=== PATIENT | female | born 1955 | race Caucasian/White ===

== ENCOUNTER 2022-03-12 08:58 | Inpatient (IN) | payer MEDICARE, OTHER ==
[~2022-03-12] VITALS: Ht 172.7 cm; Wt 91.5 kg
[2022-03-12] MEDS ORDERED: GLIMEPIRIDE4 MG PO (10:30)
[2022-03-12] MEDS ORDERED: LISINOPRIL20 MG PO (10:30)
[2022-03-12] MEDS ORDERED: FLUOXETINE HCL20 MG PO (10:30)
[2022-03-12] MEDS ORDERED: TRAZODONE HCL50 MG PO (10:31)
[2022-03-12] MEDS ORDERED: METFORMIN HCL500 MG PO (10:31)
[2022-03-12] MEDS ORDERED: FREESTYLE LIBR1 EAC2 (10:32)
--- NOTE | 2022-03-12 13:00 | NUR ---
Report received from ED RN. Pt arrived to floor from ED- settled into room. Pt is alert and oriented; speech is slurred. Compliant with assessment. Call light at hand. Denies pain/discomfort. VSS. No sign of distress noted. Will cont to monitor.
[2022-03-12] MEDS ORDERED: CLOPIDOGREL75 MG PO (13:06)
[2022-03-12] MEDS ORDERED: NOVOLIN 70100 UNIT/1 SUB-Q (13:07)
--- NOTE | 2022-03-12 15:00 | NUR ---
Alert and oriented x4. Denies pain/discomfort. Pleasant mood. Verbalizes needs; speech slurred. Up to BR with 2 person assist. VSS- see order for permissive HTN. Afebrile. Bedside swallow eval done with RN- see diet order. IV patent- flushed. Incontinent and continent of bladder. Call light within reach. Will cont to monitor.
--- NOTE | 2022-03-12 16:15 | NUR ---
MED REC COMPLETE
--- NOTE | 2022-03-12 17:00 | NUR ---
Up to chair for dinner with assist. Pt's friend is in visiting- pt seems to be in good spirits. Denies pain/discomfort. Pleasant mood. VSS. Pt w/ shampoo cap to hair then combed. BG WNL- no s/s insulin administered. Takes po meds without difficulty. Call light within reach. Will cont to monitor.
--- NOTE | 2022-03-12 19:59 | NUR ---
REPORT RECEIVED FROM DAY SHIFT RN. PT LYING IN BED ALERT AND ORIENTED. DENIES PAIN. WARM BLANKET PROVIDED. NO FURTHER NEEDS AT THIS TIME. WHITE BOARD UPDATED. CALL LIGHT IN REACH.
--- NOTE | 2022-03-12 21:30 | NUR ---
EVENING ASSESSMENT COMPLETE. SCHEDULED MEDS ADMIN PER EMAR. PT DENIES PAIN OR NAUSEA. NEURO CHECK COMPLETE. LEFT SIDE WEAKNESS NOTED WITH LITTLE MOVEMENT IN LEFT ARM. LEFT SIDE FACIAL DROOP AND SLURRED SPEECH NOTED. NO SWALLOWING ISSUES NOTED. 2PA TO REPOSITION IN BED. PT DENIES QUESTIONS OR CONCERNS. CALL LIGHT IN REACH.
--- NOTE | 2022-03-12 23:17 | NUR ---
PT RESTING IN BED WITH EYES CLOSED. RESPIRATIONS EVEN. TELE #5 SR. HR 80'S. CALL LIGHT IN REACH.
--- NOTE | 2022-03-13 02:25 | NUR ---
PT RESTING WITH EYES CLOSED. AWAKENS EASILY. VS AND I&O COMPLETE. NEURO ASSESSMENT COMPLETE. PT WITH LEFT FACIAL DROOP AND SLURRED SPEECH. DENIES VISUAL DISTURBANCES OR HEADACHE. PT WITH CARD GAME OPERATOR STRENGTH IN LEFT HAND BUT UNABLE TO RAISE LEFT ARM OFF OF THE BED. IMPROVED STRENGTH IN LEFT LEG NOTED. 2PA TO BSC TO VOID 250 ML CONCENTRATED URINE. STAFF ASSIST WITH NADIA CARE. CLEAN BRIEF ON. BACK TO BED, MARILYN WELL. TELE #5. SR. HR 70'S. NO FURTHER NEEDS. CALL LIGHT IN REACH.
--- NOTE | 2022-03-13 04:12 | NUR ---
PT RESTING IN BED WITH EYES CLOSED. RESPIRATIONS EVEN. CALL LIGHT IN REACH.
--- NOTE | 2022-03-13 05:51 | NUR ---
PT AWAKE IN BED. NEURO CHECK COMPLETE. VS AND I&O OBTAINED. PT DENIES PAIN OR NAUSEA. DUE TO VOID. ENCOURAGED PO INTAKE. TEA PROVIDED PER REQUEST. 2PA TO REPOSITION IN BED. NO FURTHER NEEDS.
--- NOTE | 2022-03-13 06:51 | NUR ---
PT UP TO BSC WITH 2PA TO ATTEMPT TO VOID WITH NO RESULTS. NADIA CARE DONE AND CLEAN BRIEF PLACED. BACK TO BED, MARILYN WELL. CONTINUE TO ENCOURAGE PO INTAKE. BED ALARM FOR SAFETY. CALL LIGHT IN REACH.
--- NOTE | 2022-03-13 06:57 | NUR ---
DR. SANCHEZ NOTIFIED OF LOW URINE OUTPUT AND POOR PO INTAKE. TO PUT ORDERS IN FOR IVF.
--- NOTE | 2022-03-13 08:59 | EKG ---
[facility] [address] [facility] [place], [place] [address] Signed Normal sinus rhythm Normal ECG No previous ECGs available Confirmed by ASHWIN SANCHEZ MD ([id number]) on 03/13/2022 8:58:51 AM Electronically Signed By: ASHWIN SANCHEZ MD 03/13/22 0859 PATIENT NAME: BRITTNEY ISAACS Electrocardiogram DATE OF : 55 PHYSICIAN: ASHWIN SANCHEZ MD REPORT #: [id number] REPORT IS CONFIDENTIAL AND NOT TO BE RELEASED WITHOUT AUTHORIZATION
--- NOTE | 2022-03-13 09:08 | NUR ---
RECD REPORT FROM NIGHT RN AT 0730, ASSUMED ALL CARE OF PT., RESTING OOB IN CHAIR, SHE HAS WORKED WITH PT ALREADY THIS MORNING, GAIT BELT, FWW, NEEDS ASSIST IN ROOM, L WEAKNESS/TARAS, ALSO FOLLOWED BY OT, . MODIFIED DIET WITH THIN LIQUID, PT. IS SLIGHTLY IMPULSIVE AND NEEDS FREQUENT CUES TO SLOW DOWN WHEN EATING AND DRINKING, SHE HAS A ZIO PATCH ON THAT WILL COME OFF ON MONDAY. TELE MONITOR HERE, SR=85. DENIES ANY DISCOMFORTS, SL IV.
--- NOTE | 2022-03-13 11:22 | NUR ---
EKG COMPLETED AND LR BOLUS COMPLETING. PT OOB IN CHAIR, CHAIR ALARM IN PLACE, REMINDED TO SIP LIQUIDS AND NOT SWALLOW GULPS. IS INSTRUCTED.
--- NOTE | 2022-03-13 12:42 | NUR ---
RN AND ADVANCE SEAL DELIVERY SYSTEM MAINTAINER ASSISTED PT. FROM CHAIR TO BSC FOR BM AND URINE, STOOD INDEPENDENTLY WITH STRENGTH, PIVOT WITH MIN ASSIST GAIT BELT/FWW TO BSC, THEN ABLE TO BACK SLOWLY TO BED. STATES SHE HAS HAD A COUGH FOR A COUPLE OF WEEKS.
--- NOTE | 2022-03-13 14:23 | NUR ---
PUMP ALARMING, INFUSION COMPLETE. NEW IV FLUID BAG HUNG. IV ASSESSED, WNL. NO S/S OF PHLEBITIS NOTED. PT WORKING WITH STUDENT AMBASSADOR. NO ADDITONAL NEEDS AT THIS TIME. CALL LIGHT WITHIN REACH. BED RAILS UP.
--- NOTE | 2022-03-13 18:07 | NUR ---
PT CALL LIGHT ON. PT REQUESTS ASSISTANCE TO USE THE RESTROOM. 2 PERSON ASSIST WITH GAIT BELT UP TO BEDSIDE COMODE. PT DEPENDS SATURATED. PT VOIDS ADDITONAL 500ML CLEAR YELLOW URINE. NADIA CARE DONE. DEPENDS CHANGED. 2 PERSON ASSIST BACK TO BED. PT POSITIONS HER SELF IN BED. PT REPORTS FAMILY DEREK HER DUCTH BROTHER COFFEE. PT ADVISED THAT SHE IS NPO AT THIS TIME. PT AGREES TO SAVE COFFEE FOR LATER. NO ADDITONAL REQUESTS OR COMPLAINTS. CALL LIGHT WITHIN REACH. BED RAILS UP.
--- NOTE | 2022-03-13 19:24 | NUR ---
REPORT RECEIVED FROM DAY SHIFT RN. PT LYING IN BED ALERT AND ORIENTED. DENIES NEEDS. IVF INFUSING WNL. WHITE BOARD UPDATED. CALL LIGHT IN REACH.
--- NOTE | 2022-03-13 21:15 | NUR ---
THIS THERAPY MANAGER AND PRIMARY RN DE HELPED PATIENT GET UP TO USE THE BEDSIDE COMMODE. PATIENT VOIDED. PATIENT IS BACK IN BED. V/S AND I&O'S COMPLETED. BED ALARM ON FOR SAFETY. CALL IHT AND SIDE TABLE WITHIN REACH.
--- NOTE | 2022-03-13 21:30 | NUR ---
PT UP TO BSC WITH 2PA TO VOID. STAFF ASSIST WITH PER CARE. PT WITH GOOD STRENGTH IN BLE. BACK TO BED, MARILYN WELL. VS AND I&O OBTAINED, WNL. BLOOD SUGAR 102. SLIDING SCALE INSULIN HELD. PT NPO. DR. SANCHEZ NOTIFIED OF BLOOD SUGAR. LONG ACTING INSULIN HELD. PT DENIES PAIN OR NAUSEA. PT WITH GOOD STRENGTH BLE. WEAKNESS IN LUE NOTED. LEFT SIDE FACIAL DROOP NOTED. IVF INFUSING WNL. PT DENIES QUESTIONS OR CONCERS. CALL LIGHT IN REACH. BED ALARM FOR SAFETY.
--- NOTE | 2022-03-14 00:55 | NUR ---
CALL LIGHT ANSWERED. IV PUMP ALARMING. NEW BAG IVF INFUSING PER ORDER. PT UP TO BSC WITH 2PA TO VOID. PT INCONTINENT OF URINE ALSO. STAFF ASSIST WITH NADIA CARE. BACK TO BED. PT ABLE TO ASSIST WITH TRANSFER AND ABLE TO TAKE STEPS WITH QUEING. LEFT ARM FLACCID. PT AGREES SHE IS COMFORTABLE. DENIES NEEDS. CALL LIGHT IN REACH. BED ALARM FOR SAFETY.
--- NOTE | 2022-03-14 02:45 | NUR ---
PT RESTING IN BED WITH EYES CLOSED. RESPIRATIONS EVEN. TELE #5. NSR. HR 70'S. BED ALARM ON. CALL LIGHT IN REACH.
--- NOTE | 2022-03-14 04:51 | NUR ---
PT RESTING IN BED WITH EYES CLOSED. RESPIRATIONS EVEN. CALL LIGHT IN REACH. BED ALARM FOR SAFETY.
--- NOTE | 2022-03-14 06:29 | NUR ---
VS AND I&O COMPLETE. PT UP TO BSC TO VOID. STAFF ASSIST WITH NADIA CARE. BACK TO BED, MARILYN WELL. MRI SCREENING FORM COMPLETE. PT REMAINS NPO. IVF INFUSING WNL. NO FURTHER NEEDS. BED ALARM FOR SAFETY. CALL LIGHT IN REACH.
--- NOTE | 2022-03-14 08:00 | NUR ---
REPORT RECEIVED FROM BAR PORTER RN. PT RESTING IN BED AND APPEARS COMFORTABLE. VSS. CALL LIGHT WITHIN REACH. WILL CONT TO MONITOR.
--- NOTE | 2022-03-14 08:35 | NUR ---
PATIENT UP TO BSC THEN TO CHAIR, 1PA FWW. NADIA CARE DONE. LINENS CHANGED. CALL LIGHT IN REACH. NO FURTHER NEEDS AT THIS TIME.
--- NOTE | 2022-03-14 09:29 | NUR ---
PATIENT SITTING UP IN CHAIR WATCHING TV. VITALS AND I&O'S CHARTED. AM CARE DONE. CHAIR ALARM ON. CALL LIGHT IN REACH. NO FURTHER NEEDS AT THIS TIME.
--- NOTE | 2022-03-14 09:30 | NUR ---
PT UP TO COMMODE WITH ASSISTANCE. UP TO CHAIR AT BEDSIDE AFTER GOING TO THE BR. TOLERATING IVF ORDERED. DENIES PAIN. PLEASANT MOOD. CALL LIGHT WITHIN REACH. WILL CONT TO MONITOR.
--- NOTE | 2022-03-14 10:47 | NUR ---
SPOKE WITH PATIENT SISTER ESTELITA BUNDY WHO IS THE PATIENT POA. ESTELITA STATES PRIOR TO THE PATIENT ILLNESS SHE WAS RESIDING AT [facility], IN FACT SHE HAD RECENTLY MOVED IN ON 03/04/22. PATIENT DID NOT REQUIRE THE USE ANY DME PRIOR AND DID A [employer]IR JOB CARING FOR HERSELF. PATIENT SISTER STATES THE PATIENT HAD BEEN HOMELESS PRIOR TO HER PLACEMENT. THE PATIENT HAS MODERNA DOSES 1 AND 2. ESTELITA STATES THEY WERE IN THE PROCESS OF COMPLETING A POLST FORM, BUT HAD NOT BEEN ABLE TO SEE DR. GAVIRIA YET. UPDATED ESTELITA ON PATIENTS CONDITION AND DISCUSSED NEED FOR HIGHER LEVEL OF CARE AT DISCHARGE. ESTELITA AGREES THAT PATIENT WILL NEED TO GO TO A DIFFERENT FACILITY AT DISCHARGE AND HAS ALREADY SPOKE TO [facility]. DISCUSSED LOCAL SNF FACILITIES, ESTELITA HAS AGREED TO [facility] AT THIS TIME. CHART FAXED TO [facility] FOR REVIEW. WILL UPDATE ESTELITA WITH PLACEMENT ANSWER JOSE LUIS.
--- NOTE | 2022-03-14 13:43 | NUR ---
IN TO DO VITALS AND I&O'S. PATIENT WAS SITTING IN CHAIR AT THAT TIME. PATIENT UP TO BATHROOM AND BACK TO CHAIR, 1PA FWW. NADIA CARE DONE. CHAIR ALARM ON. CALL LIGHT IN REACH. NO FURTHER NEEDS AT THIS TIME.
--- NOTE | 2022-03-14 14:20 | NUR ---
CALL RECVD FROM CHUY AT [facility], PATIENT HAS BEEN ACCEPTED. CHUY ASKING WHY THE PATIENT WILL NOT BE RETURNING TO [facility]. I EXPLAINED TO CHUY THAT AT THIS TIME THE PATIENT REQUIRES A HIGHER LEVEL OF CARE AND THE FAMILY HAS REQUESTED SHE GO TO [facility]. CHUY ASKED THAT WE DISCUSS POSSIBILITY OF COVID BOOSTER WITH THE PATIENT WHEN SHE ARRIVES SO THAT SHE DOES NOT HAVE TO QUARANTINE, WILL DISCUSS WITH PATIENT. DR. SANCHEZ UPDATED REGARDING PLACEMENT.
--- NOTE | 2022-03-14 15:00 | NUR ---
ST TURNER COMPLETED- DIET ADVANCED. PT'S SISTER IN VISITING AT BEDSIDE. PT UP IN CHAIR. VSS. DENIES PAIN. VERBALIZES NEEDS. CALL LIGHT WITHIN REACH.
--- NOTE | 2022-03-14 15:06 | NUR ---
PATEINT SISTER ESTELITA UPDATED REGARDING ACCEPTANCE TO [facility]. SHE STATES SHE WILL TRANSPORT THE PATIENT WHEN SHE IS READY TO GO. PATIENT AGREES TO COVID BOOSTER. WILL UPDATE [facility].
--- NOTE | 2022-03-14 15:48 | NUR ---
ANSWERED PT CALL LIGHT, ASSISTED PT TO BSC, 1PFWW. BRIEF CHANGED, PERICARE DONE. CALL LIGHT WITHIN REACH, CHAIR ALARM ON. FAMILY AT BEDSIDE, NO FURTHER ASSISTANCE NEEDED AT THIS TIME.
--- NOTE | 2022-03-14 17:52 | NUR ---
PATIENT UP TO BATHROOM FROM CHAIR, THEN TO BED. 1PA FWW. VITALS AND I&O'S CHARTED. BED ALARM ON. CALL LIGHT IN REACH. NO FURTHER NEEDS AT THIS TIME.
--- NOTE | 2022-03-14 19:20 | NUR ---
REPORT RECEIVED FROM DAY SHIFT RN. PT LYING IN BED RESTING WITH EYES CLOSED. RESPIRATIONS EVEN. BED ALARM FOR SAFETY. WHITE BOARD UPDATED. CALL LIGHT IN REACH.
--- NOTE | 2022-03-14 20:16 | NUR ---
CALL LIGHT ANSWERED. PT UP TO BR WITH FWW AND 2PA TO VOID. ABLE TO DO OWN NADIA CARE. PT UNSTEADY AT TIMES. BACK TO BED, MARILYN WELL. DENIES NEEDS. BED ALARM FOR SAFETY.
--- NOTE | 2022-03-14 21:45 | NUR ---
EVENING ASSESSMENT COMPLETE. SCHEDULED MEDS ADMIN PER EMAR. HOB ELEVATAED. LIQUIDS MODERATELY THICK. NO SWALLOWING ISSUES NOTED. PT DENIES PAIN OR NAUSEA. LEFT SIDE WEAKNESS AND FACIAL DROOP NOTED. NO FURTHER NEEDS. BED ALARM FOR SAFETY. CALL LIGHT IN REACH.
--- NOTE | 2022-03-14 23:38 | NUR ---
CALL LIGHT ANSWERED. PT UP TO BR WITH 1PA AND FWW TO VOID. AT SINK TO WASH HANDS. BACK TO BED, MARILYN WELL. GAIT UNSTEADY AT TIMES. NO FURTHER NEEDS. CALL LIGHT IN REACH. BED ALARM FOR SAFETY.
--- NOTE | 2022-03-15 01:06 | NUR ---
PT RESTING IN BED WITH EYES CLOSED. RESPIRATIONS EVEN. CALL LIGHT IN REACH.
--- NOTE | 2022-03-15 02:44 | NUR ---
PT RESTING IN BED ON LEFT SIDE. EYES CLOSED. RESPIRATIONS EVEN. BED ALARM FOR SAFETY.
--- NOTE | 2022-03-15 06:10 | NUR ---
PT UP TO BR WITH 1PA TO VOID AND HAVE LARGE SOFT BM. ABLE TO DO OWN NADIA CARE. AT SINK TO WASH HANDS. BACK TO BED, MARILYN WELL. VS AND I&O COMPLETE. SIPS OF THICKENED WATER PROVIDED. NO COUGHING OR CHOKING NOTED. NO FURTHER NEEDS. CALL LIGHT IN REACH. BED ALARM ON.
--- NOTE | 2022-03-15 07:05 | NUR ---
REPORT RECIEVED FROM BRANDON DRAPER. PT RESTING IN BED NO NEEDS IDENTIFIED AT THIS TIME.
--- NOTE | 2022-03-15 08:22 | NUR ---
IN PT ROOM TO ADMINISTER SCHEDULED MEDS. PT RESTING IN RECLINER A+O, IV WNL, LSC. NEURO CHECK COMPLETE, SIGNIFICANT WEAKNESS IN LEFT ARM, MINIMAL BRICK LAYER STRENGTH, LEFT FACIAL DROOP, SLURRED SPEECH NOTED. ABLE TO SWALLOW PILLS WHOLE WITH WATER. ST IN ROOM TO WORK WITH PT.
--- NOTE | 2022-03-15 09:41 | NUR ---
PT RETURNED TO [facility] FROM MRI. PT RESTING IN BED, "STATES" WANTING TO SLEEP. CALL LIGHT IN REACH, BED ALARM SET. NO FURTHER NEEDS IDENTIFIED AT THIS TIME.
--- NOTE | 2022-03-15 09:54 | NUR ---
PATIENT IN BED RESTING AT THIS TIME. VITALS AND I&O'S CHARTED. CALL LIGHT IN REACH. BED ALARM ON. NO FURTHER NEEDS AT THIS TIME.
--- NOTE | 2022-03-15 11:03 | NUR ---
Pt working with physical therapy, walking in hallway.
--- NOTE | 2022-03-15 11:20 | NUR ---
CALL LIGHT ANSWERED. PT REQUEST NURSING STAFF TO CALL SISTER AND UPDATE ON CONDITION. PT SISTER ESTELITA ANSWERED PHONE AND DISCUSSED PLAN OF CARE AND DISCHARGE TO [facility]. NO FURTHER QUESTIONS WILL CONTINUE TO UPDATE SISTER ON POC.
[2022-03-15] MEDS ORDERED: AMLODIPINE BESYL5 MG PO (12:27)
[2022-03-15] MEDS ORDERED: ATORVASTATIN CA80 MG PO (12:28)
[2022-03-15] MEDS ORDERED: LISINOPRIL40 MG PO (12:29)
[2022-03-15] MEDS ORDERED: ACETAMINOPHEN500 MG PO (12:29)
[2022-03-15] MEDS ORDERED: LO-DOSE ASPIRIN81 MG PO (12:29)
[2022-03-15] MEDS ORDERED: METFORMIN HCL500 MG PO (12:30)
--- NOTE | 2022-03-15 12:38 | NUR ---
[facility] has accepted patient for today's admission per K.C., sister is aware for transport.
--- NOTE | 2022-03-15 13:47 | NUR ---
PT IS ALERT, PLEASANT AND SAID SHE IS FEELING GOOD, BUT WOULD LIKE TO GET DRESSING OF OF HER RLE. HAD PLEASANT VISIT, GAVE BLESSING. PT THANKED ME, PT IS TO DC TO [facility] TODAY. WILL FOLLOW NEEDED
--- NOTE | 2022-03-15 14:38 | NUR ---
ADMINISTERED SCHEDULED MEDICATIONS. SISTER IN ROOM. THIS STUDENT NURSE HELPED GET PT DRESSED AND READY FOR DISHARGE. NO FURTHER QUESTIONS AT THIS TIME. IV REMOVED CATH INTACT. CALL LIGHT IN REACH. NO FURTHER NEEDS AT THIS TIME.
--- NOTE | 2022-03-15 14:40 | NUR ---
IN ROOM TO ADMINISTER MODERNA BOOSTER. PT EDUCATED AND VERBALIZES UNDERSTANDING. BOOSTER SHOT ADMINISTERED IN LEFT DELTOID. PT DENIES FURTHER NEEDS. WILL CONTINUE TO MONITOR PT.
--- NOTE | 2022-03-15 15:00 | NUR ---
DISCHARGE TEACHING AND EDUCATION PROVIDED, PT AND FAMILY VERBALIZES UNDERSTANDING AND HAVE NO QUESTIONS AT THIS TIME. VSS.
== END 2022-03-15 15:05 | disposition home or self-care (01) | DRG 65 ==
LOC: ED 08:58 → MS 11:40
PROVIDERS: ADMIT Internal Medicine; ATTEND Internal Medicine
DX: I63.9 Cerebral infarction, unspecified (principal); G81.94 Hemiplegia, unspecified affecting left nondominant side; Z20.822 Contact with and (suspected) exposure to COVID-19; R29.705 NIHSS score 5; R29.810 Facial weakness; E78.5 Hyperlipidemia, unspecified; R13.12 Dysphagia, oropharyngeal phase; I10 Essential (primary) hypertension; F39 Unspecified mood [affective] disorder; E11.9 Type 2 diabetes mellitus without complications; F01.50 Vascular dementia, unspecified severity, without behavioral disturbance, psychotic disturbance, mood disturbance, and anxiety; F32.A Depression, unspecified; Z79.02 Long term (current) use of antithrombotics/antiplatelets; Z88.0 Allergy status to penicillin; Z79.84 Long term (current) use of oral hypoglycemic drugs; Z79.899 Other long term (current) drug therapy
CPT/HCPCS: 36415; 70450; 70496; 70498; 70551; 71045; 80053; 80061; 83036; 85025; 85610; 85730; 87502; 93005; 93010; A9270; C9803; J1650; J1815; J7121; U0003